=== PATIENT | male | born 1975 | race African-American/Black ===

== ENCOUNTER 2018-11-26 11:43 | Inpatient (IN) | payer OTHER | END 2018-11-28 10:11 | disposition left against medical advice (07) | LOC: YASAS 11:43 → Y3N 14:40 ==

== ENCOUNTER 2019-03-23 14:29 | Inpatient (IN) | payer OTHER ==
[2019-03-23 17:25] VITALS: BMI 18.8
--- NOTE | 2019-03-23 18:26 | HP ---
CIWA Score - Admission Criteria OASAS Guidelines: Admission for Medically Managed Detox: Requires at least one of the followin. CIWA greater than 12 2. Seizures within the past 24 hours 3. Delirium tremens within the past 24 hours 4. Hallucinations within the past 24 hours 5. Acute intervention needed for co occurring medical disorder 6. Acute intervention needed for co occurring psychiatric disorder 7. Severe withdrawal that cannot be handled at a lower level of care (continued vomiting, continued diarrhea, abnormal vital signs) requiring intravenous medication and/or fluids 8. Admission ROS [facility] Chief Complaint: Rehab Services Allergies/Adverse Reactions: Allergies Allergy/AdvReac Type Severity Reaction Status Date / Time No Known Allergies Allergy Verified 03/23/19 17:13 History of Present Illness: 43 y.o. man with an extensive history of crack-cocaine and marijuana dependence as well as alcohol abuse is here seeking rehab services. He was last here for detox on 11/2018 but left AMA after two days. Exam Limitations: No Limitations - Ebola screening Have you traveled outside of the country in the last 21 days: No Have you had contact with anyone from an Ebola affected area: No - Review of Systems Constitutional: No Symptoms Reported EENT: reports: No Symptoms Reported Respiratory: reports: No Symptoms reported Cardiac: reports: No Symptoms Reported GI: reports: No Symptoms Reported : reports: No Symptoms Reported Musculoskeletal: reports: Muscle Pain, Muscle Weakness Integumentary: reports: Bruising, Dryness, Lumps Neuro: reports: Weakness Endocrine: reports: No Symptoms Reported Hematology: reports: No Symptoms Reported Psychiatric: reports: Orientated x3 Other Systems: Reviewed and Negative Patient History - Patient Medical History Hx Anemia: No Hx Asthma: No Hx Chronic Obstructive Pulmonary Disease (COPD): No Hx Cancer: No Hx Cardiac Disorders: No Hx Congestive Heart Failure: No Hx Hypertension: No Hx Hypercholesterolemia: No Hx Pacemaker: No HX Cerebrovascular Accident: No Hx Seizures: No Hx Dementia: No Hx Diabetes: No Hx Gastrointestinal Disorders: No Hx Liver Disease: No Hx Genitourinary Disorders: No Hx Sexually Transmitted Disorders: No Hx Renal Disease (ESRD): No Hx Thyroid Disease: No Hx Human Immunodeficiency Virus (HIV): No (last 2015 negative) Hx Hepatitis C: No Hx Depression: No Hx Suicide Attempt: No Hx Bipolar Disorder: No Hx Schizophrenia: Yes (no med 3 years) - Patient Surgical History Past Surgical History: No - PPD History Previous Implant?: Yes Implanted On Prior [facility] Admission?: Yes Date: 11/28/18 Results: Left AMA PPD to be Administered?: Yes - Reproductive History Patient is a Female of Child Bearing Age (11 -55 yrs old): No - Smoking Cessation Smoking history: Current every day smoker Have you smoked in the past 12 months: Yes Aproximately how many cigarettes per day: 20 Cigars Per Day: 0 Hx Chewing Tobacco Use: No Initiated information on smoking cessation: Yes 'Breaking Loose' booklet given: 03/23/19 - Substance & Tx. History Hx Alcohol Use: Yes Hx Substance Use: Yes Substance Use Type: Alcohol, Cocaine, Marijuana - Substances abused Alcohol Substance route: Oral Frequency: 1-2 times per week Amount used: 1 pint of vodka/12 of 12 ozs of beer Age of first use: 11 Date of last use: 03/22/19 Cocaine Substance route: Smoking Frequency: Daily Amount used: 300$ Age of first use: 15 Date of last use: 03/22/19 Marijuana/Hashish Substance route: Smoking Frequency: Daily Amount used: 3 CLIPS Age of first use: 15 Date of last use: 03/22/19 Family Disease History - Family Disease History Family Disease History: Other: Father (alcohol,), Mother (alcohol, ) Admission Physical Exam BHS - Vital Signs Vital Signs: Vital Signs - 24 hr 03/23/19 17:13 Temperature 97.2 F L Pulse Rate 82 Respiratory 18 Rate Blood Pressure 133/84 - Diagnostic (1) Edema of right lower extremity Current Visit: Yes Status: Chronic (2) Limping Current Visit: Yes Status: Chronic (3) Nicotine dependence Current Visit: Yes Status: Chronic Qualifiers: Nicotine product type: cigarettes Substance use status: uncomplicated Qualified Code(s): F17.210 - Nicotine dependence, cigarettes, uncomplicated (4) Alcohol abuse Current Visit: Yes Status: Chronic (5) Tinea pedis of both feet Current Visit: Yes Status: Acute (6) Right leg weakness Current Visit: Yes Status: Acute (7) Cocaine dependence Current Visit: Yes Status: Chronic Qualifiers: Substance use status: in withdrawal Qualified Code(s): F14.23 - Cocaine dependence with withdrawal (8) Foot fracture, right Current Visit: No Status: Resolved Qualifiers: Encounter type: sequela Fracture type: closed Qualified Code(s): S92.901S - Unspecified fracture of right foot, sequela (9) Cannabis dependence Current Visit: Yes Status: Chronic Cleared for Admission [facility] - Detox or Rehab [facility] Level of Care: Observation Bed Detox Regimen/Protocol: Not Applicable Claeared for Rehab Admission: Yes Breathalyzer - Breathalyzer Breathalyzer: 0 Urine Drug Screen - Test Device Lot number: [id number] Expiration date: 12/05/20 - Control Is test valid?: Yes - Results Drug screen NEGATIVE: No Urine drug screen results: THC-Marijuana, SREEKANTH-Cocaine, MET-Methamphetamine Inpatient Rehab Admission - Rehab Decision to Admit Inpatient rehab admission?: Yes - Initial Determination Are CD services needed?: Yes Free of communicable disease: Yes Not in need of hospitalization: Yes - Rehab Admission Criteria Previous failed treatment: Yes Poor recovery environment: Yes Comorbidities: Yes Lacks judgement: Yes Patient is meeting Inpatient Rehab admission criteria:: Yes
[2019-03-23] MEDS ORDERED: IBUPROFEN 400 MG TABLET (FP) PO PRN (18:35)
[2019-03-23] MEDS ORDERED: hydrOXYzine PAMOATE 50 MG CAPSULE (FP) PO PRN (18:35)
[2019-03-23] MEDS ORDERED: guaiFENesin 200 MG/10 ML 10 ML UNIT-DOSE CUPS PO PRN (18:35)
[2019-03-23] MEDS ORDERED: MENTHOL/PHENOL 1 EACH UD MM PRN (18:35)
[2019-03-23] MEDS ORDERED: P-EPHED 60MG/TRIPROLIDI 2.5MG TABLET PO PRN (18:35)
[2019-03-23] MEDS ORDERED: MAGNESIUM CITRATE 300 ML BOTTLE PO PRN (18:35)
[2019-03-23] MEDS ORDERED: NICOTINE POLACRILEX 2 MG GUM BC PRN (18:35)
[2019-03-23] MEDS ORDERED: MAGNESIUM HYDROX 2400MG/30ML ORAL SUSPENSION 30 ML CUP PO PRN (18:35)
[2019-03-23] MEDS ORDERED: MAG HYDROX/AL HYDROX/SIMETH 30 ML UNIT-DOSE CUP PO PRN (18:35)
[2019-03-23] MEDS ORDERED: ACETAMINOPHEN 325 MG TABLET (FP) PO PRN (18:35)
[2019-03-23] MEDS ORDERED: LOPERAMIDE HCL 2 MG CAPSULE PO PRN (18:35)
[2019-03-23] MEDS: TOLNAFTATE 1% CREAM 15 GM TUBE TP SCH (21:45)
[2019-03-23] MEDS: THIAMINE HCL 100 MG TABLET (FP) PO SCH (21:45)
[2019-03-23] MEDS ORDERED: MELATONIN 5 MG TABLETS PO PRN (22:00)
[2019-03-24] MEDS ORDERED: PT OWN MED DRAWER 7, Y5N ONE (08:52)
--- NOTE | 2019-03-24 09:36 | CONSULT ---
[facility] Psychiatric Consult - Data Date of interview: 03/24/19 Admission source: [facility] Identifying data: Patient is a 43 year old single male, without children, unemployed, homeless, and is not receiving financial assistance. This is one of multiple admissions for patient. Patient admitted to for alcohol, cocaine, and cannabis dependence. Substance Abuse History: - Smoking Cessation. Smoking history: Current every day smoker. Have you smoked in the past 12 months: Yes. Aproximately how many cigarettes per day: 20. Cigars Per Day: 0. Hx Chewing Tobacco Use: No. Initiated information on smoking cessation: Yes. 'Breaking Loose' booklet given : 03/23/19. - Substance & Tx. History. Hx Alcohol Use: Yes. Hx Substance Use : Yes. Substance Use Type: Alcohol, Cocaine, Marijuana. - Substances abused. Alcohol. Substance route: Oral. Frequency: 1-2 times per week. Amount used : 1 pint of vodka/12 of 12 ozs of beer. Age of first use: 11. Date of last use : 03/22/19. Cocaine. Substance route: Smoking. Frequency: Daily. Amount used: 300$. Age of first use: 15. Date of last use: 03/22/19. Marijuana/ Hashish. Substance route: Smoking. Frequency: Daily. Amount used: 3 CLIPS. Age of first use: 15. Date of last use: 03/22/19 Psychiatric History: Patient is a poor historian. Appears to be reluctant to speak about his psychiatric history. Patient states that his first psychiatric contact was in 1996. He reports a history of multiple psychiatric hospitalizations but only recalls being hospitalized at [facility] and taking zyprexa. States that he was diagnosed with schizophrenia. States that his psychiatric admissions were due to his homelessness as he only needed a place to sleep. Patient denies history of suicide attempt. Patient is not under the care of a psychiatric provider. Patient denies auditory/visual hallucinations, suicidal/homicial ideations. No psychosis noted at this current time. Physical/Sexual Abuse/Trauma History: denies. Mental Status Exam - Mental Status Exam Alert and Oriented to: Time, Place, Person Cognitive Function: Good Patient Appearance: Well Groomed Mood: Withdrawn Affect: Mood Congruent Patient Behavior: Guarded, Cooperative Speech Pattern: Appropriate Voice Loudness: Moderately Soft/Quiet Thought Process: Goal Oriented Thought Disorder: Not Present Hallucinations: Denies Suicidal Ideation: Denies Homicidal Ideation: Denies Insight/Judgement: Poor Sleep: Fair Appetite: Fair Muscle strength/Tone: Normal Gait/Station: Other (Walks with a limp.) Psychiatric Findings - Problem List ([place] 1, 2,3) (1) Alcohol dependence Current Visit: Yes Status: Acute (2) Cannabis dependence Current Visit: Yes Status: Chronic (3) Cocaine dependence Current Visit: Yes Status: Chronic Qualifiers: Substance use status: in withdrawal Qualified Code(s): F14.23 - Cocaine dependence with withdrawal (4) Schizophrenia Current Visit: No Status: Chronic Comment: as per self report - Initial Treatment Plan Initial Treatment Plan: Psychoeducation provided. Rehab in progress. Observation.
[2019-03-24] MEDS: PRENATAL VITAMINS W/ FOLIC ACID TABLET (FP) PO SCH (09:49)
[2019-03-24] MEDS: TOLNAFTATE 1% CREAM 15 GM TUBE TP SCH ×2 (09:49→21:54)
[2019-03-24] MEDS: NICOTINE 21 MG/24 HOURS TOPICAL PATCH TD SCH (09:49)
[2019-03-24 12:04] LABS: HEMATOCRIT 34.3 % (35.4-49); HEMOGLOBIN 11.1 GM/dL (11.7-16.9); MCH 24.7 pg (25.7-33.7); MCHC 32.4 g/dl (32.0-35.9); MEAN PLT VOLUME 9.2 fl (7.5-11.1); PLATELET COUNT 231 K/MM3 (134-434); RBC 4.51 M/mm3 (4.00-5.60); RDW 16.1 % (11.9-15.9); WHITE BLOOD COUNT 3.1 K/mm3 (4.0-10.0)
[2019-03-24 12:10] LABS: BILIRUBIN,TOTAL 0.5 mg/dL (0.2-1); BLOOD UREA NITROGEN 17.7 mg/dL (7-18); CALCIUM 8.5 mg/dL (8.5-10.1); CREATININE 0.8 mg/dL (0.55-1.3); TOT PROT 6.2 g/dl (6.4-8.2)
[2019-03-24 12:20] LABS: URINE APPEARANCE CLEAR; URINE BILIRUBIN NEGATIVE (NEGATIVE); URINE COLOR YELLOW; URINE GLUCOSE (UA) NEGATIVE (NEGATIVE); URINE KETONE NEGATIVE (NEGATIVE); URINE LEUK ESTERASE NEGATIVE (NEGATIVE); URINE NITRITE NEGATIVE (NEGATIVE); URINE PROTEIN NEGATIVE (NEGATIVE); URINE UROBILINOGEN 0.2 mg/dL (0.2-1.0)
[2019-03-24] MEDS: THIAMINE HCL 100 MG TABLET (FP) PO SCH (21:54)
[2019-03-25] MEDS: PRENATAL VITAMINS W/ FOLIC ACID TABLET (FP) PO SCH (10:34)
[2019-03-25] MEDS: NICOTINE 21 MG/24 HOURS TOPICAL PATCH TD SCH (10:34)
[2019-03-25] MEDS: TOLNAFTATE 1% CREAM 15 GM TUBE TP SCH ×2 (10:34→21:44)
[2019-03-25] MEDS: THIAMINE HCL 100 MG TABLET (FP) PO SCH (21:44)
[2019-03-26] MEDS: PRENATAL VITAMINS W/ FOLIC ACID TABLET (FP) PO SCH (09:53)
[2019-03-26] MEDS: NICOTINE 21 MG/24 HOURS TOPICAL PATCH TD SCH (09:53)
[2019-03-26] MEDS: TOLNAFTATE 1% CREAM 15 GM TUBE TP SCH ×2 (10:55→22:06)
[2019-03-26] MEDS: THIAMINE HCL 100 MG TABLET (FP) PO SCH (22:06)
[2019-03-27 08:39] VITALS: BP 116/88; PULSE 78; TEMP 98
[2019-03-27] MEDS: PRENATAL VITAMINS W/ FOLIC ACID TABLET (FP) PO SCH (10:03)
[2019-03-27] MEDS: NICOTINE 21 MG/24 HOURS TOPICAL PATCH TD SCH (10:03)
[2019-03-27] MEDS: TOLNAFTATE 1% CREAM 15 GM TUBE TP SCH (10:04)
--- NOTE | 2019-03-27 10:51 | PN ---
[facility] Progress Note Note: Patient stated abruptly to provider " I wanna leave now!!!" When inquired as to his decision to leave, patient stated " Because I said so". Patient appears guarded and irritable, but denies SI/HI. Patient admitted on 03/23/19 for crack/ cocaine dependence and has hx of schizophrenia and multiple admissions to different hospitals. Last admission to [facility] in November 2018 and patient signed out AMA then as well. Patient encouraged to complete rehab but refused. Body Builder Apprentice explained risk factors of relapse and possible overdose with not completing treatment, however patient continued with AMA process. PE alert and oriented x 3 skin warm and dry +perrla, eoms intact bl neck supple,no jvd ext amb with limp, no tremors A/P crack/cocaine dependence Patient signed out ama.
--- NOTE | 2019-03-27 10:54 | DS ---
[facility] Rehab Discharge Summary - [facility] Rehab Discharge Summary Admission Date: 03/23/19 Discharge Date: 03/27/19 - History Present History: Cocaine dependence - Discharge Physical Exam Vital Signs: Vital Signs Temperature 98 F 03/27/19 06:38 Pulse Rate 78 03/27/19 06:38 Respiratory Rate 18 03/27/19 06:38 Blood Pressure 116/88 03/27/19 06:38 O2 Sat by Pulse Oximetry (%) - Medication Discharge Medications: Ambulatory Orders Aripiprazole 10 mg PO DAILY 03/23/19 Clonazepam 0.5 mg PO DAILY 03/23/19 Fluoxetine HCl 10 mg PO DAILY 03/23/19 - Medication-Assisted Treatment (MAT) Medication-Assisted Treatment (MAT): No - Discharge Instructions Diet, activity, other medical instructions: Diet: Activity: Other medical instructions: - Follow-up Referral Minutes to complete discharge: 30 - AMA Did Patient Leave Against Medical Advice: Yes
== END 2019-03-27 11:30 | disposition left against medical advice (07) | DRG 770 ==
LOC: YASAS 14:29 → Y3W 18:38
PROVIDERS: ADMIT Neuromusculoskeletal Medicine & OMM; ATTEND Neuromusculoskeletal Medicine & OMM
PROC: HZ42ZZZ Group Counseling for Substance Abuse Treatment, Cognitive-Behavioral (ICD-10-PCS; principal; 2019-03-23)
DX: F10.20 Alcohol dependence, uncomplicated (principal); F14.20 Cocaine dependence, uncomplicated; F12.20 Cannabis dependence, uncomplicated; F20.9 Schizophrenia, unspecified; R26.89 Other abnormalities of gait and mobility; B35.3 Tinea pedis; R60.0 Localized edema; R29.898 Other symptoms and signs involving the musculoskeletal system
CPT/HCPCS: 36415; 80053; 81003; 85027; 86593

== ENCOUNTER 2019-05-27 14:47 | Inpatient (IN) | payer OTHER ==
[2019-05-27 16:47] VITALS: BMI 23.5
--- NOTE | 2019-05-27 17:27 | HP ---
CIWA Score - Admission Criteria OASAS Guidelines: Admission for Medically Managed Detox: Requires at least one of the followin. CIWA greater than 12 2. Seizures within the past 24 hours 3. Delirium tremens within the past 24 hours 4. Hallucinations within the past 24 hours 5. Acute intervention needed for co occurring medical disorder 6. Acute intervention needed for co occurring psychiatric disorder 7. Severe withdrawal that cannot be handled at a lower level of care (continued vomiting, continued diarrhea, abnormal vital signs) requiring intravenous medication and/or fluids 8. Admitting History and Physical - Smoking History Smoking history: Current every day smoker Have you smoked in the past 12 months: Yes Aproximately how many cigarettes per day: 20 - Alcohol/Substance Use Hx Alcohol Use: Yes Admission ROS [facility] Allergies/Adverse Reactions: Allergies Allergy/AdvReac Type Severity Reaction Status Date / Time No Known Allergies Allergy Verified 05/27/19 16:32 History of Present Illness: 43 y/o M presenting to [facility] for Rehab as he is "tired of using drugs". Pt uses - Ebola screening Have you traveled outside of the country in the last 21 days: No Have you had contact with anyone from an Ebola affected area: No Do you have a fever: No Patient History - Patient Medical History Hx Anemia: No Hx Asthma: No Hx Chronic Obstructive Pulmonary Disease (COPD): No Hx Cancer: No Hx Cardiac Disorders: No Hx Congestive Heart Failure: No Hx Hypertension: No Hx Hypercholesterolemia: No Hx Pacemaker: No HX Cerebrovascular Accident: No Hx Seizures: No Hx Dementia: No Hx Diabetes: No Hx Gastrointestinal Disorders: No Hx Liver Disease: No Hx Genitourinary Disorders: No Hx Sexually Transmitted Disorders: No Hx Renal Disease (ESRD): No Hx Thyroid Disease: No Hx Human Immunodeficiency Virus (HIV): No (last 2015 negative) Hx Hepatitis C: No Hx Depression: No Hx Suicide Attempt: No Hx Bipolar Disorder: No Hx Schizophrenia: No - Patient Surgical History Past Surgical History: No Hx Neurologic Surgery: No Hx Cataract Extraction: No Hx Cardiac Surgery: No Hx Lung Surgery: No Hx Breast Surgery: No Hx Breast Biopsy: No Hx Abdominal Surgery: No Hx Appendectomy: No Hx Cholecystectomy: No Hx Genitourinary Surgery: No Hx Section: No Hx Orthopedic Surgery: No - PPD History Date: 11/28/18 Results: Left AMA - Smoking Cessation Smoking history: Current every day smoker Have you smoked in the past 12 months: Yes Aproximately how many cigarettes per day: 20 Cigars Per Day: 0 Hx Chewing Tobacco Use: No - Substances abused Alcohol Substance route: Oral Frequency: 3-6 times per week Amount used: less than 1 can Age of first use: 11 Date of last use: 05/26/19 Cocaine Substance route: Smoking Frequency: Daily Amount used: 300$ Age of first use: 15 Date of last use: 03/22/19 Marijuana/Hashish Substance route: Smoking Frequency: Daily Amount used: 1 clip Age of first use: 15 Date of last use: 05/26/19 Heroin Substance route: Inhalation Frequency: No use in 30 days Amount used: 1 sniff Age of first use: 43 Date of last use: 05/26/19 Admission Physical Exam BHS - Vital Signs Vital Signs: Vital Signs - 24 hr 05/27/19 16:36 Temperature 98.7 F Pulse Rate 95 H Respiratory 16 Rate Blood Pressure 120/67 Breathalyzer - Breathalyzer Breathalyzer: 0 Urine Drug Screen - Test Device Lot number: [id number] Expiration date: 02/04/21 - Control Is test valid?: Yes - Results Drug screen NEGATIVE: No Urine drug screen results: THC-Marijuana, SREEKANTH-Cocaine
--- NOTE | 2019-05-27 18:06 | HP ---
CIWA Score - Admission Criteria OASAS Guidelines: Admission for Medically Managed Detox: Requires at least one of the followin. CIWA greater than 12 2. Seizures within the past 24 hours 3. Delirium tremens within the past 24 hours 4. Hallucinations within the past 24 hours 5. Acute intervention needed for co occurring medical disorder 6. Acute intervention needed for co occurring psychiatric disorder 7. Severe withdrawal that cannot be handled at a lower level of care (continued vomiting, continued diarrhea, abnormal vital signs) requiring intravenous medication and/or fluids 8. Admitting History and Physical - Smoking History Smoking history: Current every day smoker Have you smoked in the past 12 months: Yes Aproximately how many cigarettes per day: 20 Admission ROS [facility] Chief Complaint: here for rehab from cocaine Allergies/Adverse Reactions: Allergies Allergy/AdvReac Type Severity Reaction Status Date / Time No Known Allergies Allergy Verified 05/27/19 16:32 History of Present Illness: 43 yo with h/o schizophrenia, bipolar, homeless, seen at [facility] and cleared by psych. Pt on ?? and prozac. Pt is here requesting rehab. About 2 weeks ago, says he hurt his R foot and is now with pain of R middle toe. Pt states b/c of pain he has difficulty walking. Pt states he has been walking the streets. Pt now states he drinks occ- what he finds in the garbage Says he uses solomon occ. Says he uses THC occ Says he uses alcohol occ DUR- neg for controlled substances - Ebola screening Have you traveled outside of the country in the last 21 days: No Have you had contact with anyone from an Ebola affected area: No Do you have a fever: No - Review of Systems Musculoskeletal: reports: Other (says he has difficulty walking b/c of pain of both feet, juan R foot- had injury about 2 weeks ago) Integumentary: reports: No Symptoms Reported, Other Neuro: reports: No Symptoms reported Endocrine: reports: No Symptoms Reported Hematology: reports: No Symptoms Reported Psychiatric: reports: Orientated x3, Anxious Patient History - Patient Medical History Hx Anemia: No Hx Asthma: No Hx Chronic Obstructive Pulmonary Disease (COPD): No Hx Cancer: No Hx Cardiac Disorders: No Hx Congestive Heart Failure: No Hx Hypertension: No Hx Hypercholesterolemia: No Hx Pacemaker: No HX Cerebrovascular Accident: No Hx Seizures: No Hx Dementia: No Hx Diabetes: No Hx Gastrointestinal Disorders: No Hx Liver Disease: No Hx Genitourinary Disorders: No Hx Sexually Transmitted Disorders: No Hx Renal Disease (ESRD): No Hx Thyroid Disease: No Hx Human Immunodeficiency Virus (HIV): No (last 2016 negative) Hx Hepatitis C: No Hx Depression: No Hx Suicide Attempt: No Hx Bipolar Disorder: Yes Hx Schizophrenia: Yes - Patient Surgical History Past Surgical History: No Hx Neurologic Surgery: No Hx Cataract Extraction: No Hx Cardiac Surgery: No Hx Lung Surgery: No Hx Breast Surgery: No Hx Breast Biopsy: No Hx Abdominal Surgery: No Hx Appendectomy: No Hx Cholecystectomy: No Hx Genitourinary Surgery: No Hx Section: No Hx Orthopedic Surgery: No - PPD History Date: 11/28/18 Results: Left AMA - Smoking Cessation Smoking history: Current every day smoker Have you smoked in the past 12 months: Yes Aproximately how many cigarettes per day: 20 Cigars Per Day: 0 Hx Chewing Tobacco Use: No Initiated information on smoking cessation: Yes 'Breaking Loose' booklet given: 05/27/19 - Substances abused Alcohol Substance route: Oral Frequency: 3-6 times per week Amount used: less than 1 can Age of first use: 11 Date of last use: 05/26/19 Cocaine Substance route: Smoking Frequency: Daily Amount used: 300$ Age of first use: 15 Date of last use: 03/22/19 Marijuana/Hashish Substance route: Smoking Frequency: Daily Amount used: 1 clip Age of first use: 15 Date of last use: 05/26/19 Heroin Substance route: Inhalation Frequency: No use in 30 days Amount used: 1 sniff Age of first use: 43 Date of last use: 05/26/19 Admission Physical Exam BHS - Vital Signs Vital Signs: Vital Signs - 24 hr 05/27/19 16:36 Temperature 98.7 F Pulse Rate 95 H Respiratory 16 Rate Blood Pressure 120/67 - Physical General Appearance: Yes: Disheveled, Irritable HEENTM: Yes: Within Normal Limits, Hearing grossly Normal, Normal Voice, ZAHRA Respiratory: Yes: Within Normal Limits, Lungs Clear Neck: Yes: Within Normal Limits Cardiology: Yes: Within Normal Limits, Regular Rate Abdominal: Yes: Within Normal Limits, Soft Back: Yes: Within Normal Limits Musculoskeletal: Yes: Other (pt with limp while walking) Extremities: Yes: Other (both legs- thickened skin, R> L with good pulses, no calf tenderness R,) Neurological: Yes: Within Normal Limits, Fully Oriented (alert and oriented X3) , Alert Integumentary: Yes: Other (thickened skin R leg w. venous stasis type changes) Breathalyzer - Breathalyzer Breathalyzer: 0 Urine Drug Screen - Test Device Lot number: [id number] Expiration date: 02/04/21 - Control Is test valid?: Yes - Results Drug screen NEGATIVE: No Urine drug screen results: THC-Marijuana, SOLOMON-Cocaine Inpatient Rehab Admission - Rehab Decision to Admit Inpatient rehab admission?: Yes - Initial Determination Are CD services needed?: Yes Free of communicable disease: Yes Not in need of hospitalization: Yes - Rehab Admission Criteria Previous failed treatment: Yes Poor recovery environment: Yes Comorbidities: Yes Lacks judgement: Yes Patient is meeting Inpatient Rehab admission criteria:: Yes (urine tox pos solomon and tHC)
[2019-05-27] MEDS ORDERED: LOPERAMIDE HCL 2 MG CAPSULE PO PRN (18:56)
[2019-05-27] MEDS ORDERED: ACETAMINOPHEN 325 MG TABLET (FP) PO PRN (18:56)
[2019-05-27] MEDS ORDERED: MAG HYDROX/AL HYDROX/SIMETH 30 ML UNIT-DOSE CUP PO PRN (18:56)
[2019-05-27] MEDS ORDERED: MAGNESIUM HYDROX 2400MG/30ML ORAL SUSPENSION 30 ML CUP PO PRN (18:56)
[2019-05-27] MEDS ORDERED: MENTHOL/PHENOL 1 EACH UD MM PRN (18:56)
[2019-05-27] MEDS ORDERED: guaiFENesin 200 MG/10 ML 10 ML UNIT-DOSE CUPS PO PRN (18:56)
[2019-05-27] MEDS ORDERED: NICOTINE POLACRILEX 2 MG GUM BC PRN (18:56)
[2019-05-27] MEDS ORDERED: IBUPROFEN 400 MG TABLET (FP) PO PRN (18:56)
[2019-05-27] MEDS ORDERED: hydrOXYzine PAMOATE 25 MG CAPSULE (FP) PO PRN (18:56)
[2019-05-27] MEDS ORDERED: MAGNESIUM CITRATE 300 ML BOTTLE PO PRN (18:56)
[2019-05-27] MEDS ORDERED: P-EPHED 60MG/TRIPROLIDI 2.5MG TABLET PO PRN (18:56)
[2019-05-27] MEDS ORDERED: MELATONIN 5 MG TABLETS PO PRN (22:00)
[2019-05-27] MEDS: THIAMINE HCL 100 MG TABLET (FP) PO SCH (23:17)
[2019-05-28 09:50] LABS: PH,URINE 5.5 (5.0-8.0); URINE APPEARANCE CLEAR; URINE BILIRUBIN NEGATIVE (NEGATIVE); URINE COLOR YELLOW; URINE GLUCOSE (UA) NEGATIVE (NEGATIVE); URINE KETONE NEGATIVE (NEGATIVE); URINE LEUK ESTERASE NEGATIVE (NEGATIVE); URINE NITRITE NEGATIVE (NEGATIVE); URINE PROTEIN NEGATIVE (NEGATIVE); URINE UROBILINOGEN 0.2 mg/dL (0.2-1.0)
[2019-05-28] MEDS ORDERED: FLUoxetine HCL 10 MG CAPSULE (FP) PO SCH (10:00)
[2019-05-28] MEDS ORDERED: ARIPiprazole 10 MG TABLET PO SCH (10:00)
[2019-05-28] MEDS: PRENATAL VITAMINS W/ FOLIC ACID TABLET (FP) PO SCH (10:32)
--- NOTE | 2019-05-28 12:19 | CONSULT ---
[facility] Psychiatric Consult - Data Date of interview: 05/28/19 Admission source: [facility] Identifying data: Patient approached for psychiatric consultation. Patient refused. Stated, " i dont need psych meds. I dont see psychiatrist". Psychiatric consultation refused.
[2019-05-28 12:26] LABS: HEMATOCRIT 34.2 % (35.4-49); HEMOGLOBIN 10.8 GM/dL (11.7-16.9); MCH 24.4 pg (25.7-33.7); MCHC 31.7 g/dl (32.0-35.9); MEAN CELL VOLUME 77.1 fl (80-96); MEAN PLT VOLUME 9.5 fl (7.5-11.1); PLATELET COUNT 214 K/MM3 (134-434); RBC 4.44 M/mm3 (4.00-5.60); RDW 19.2 % (11.9-15.9); WHITE BLOOD COUNT 4.1 K/mm3 (4.0-10.0)
[2019-05-28 12:44] LABS: ALBUMIN 2.9 g/dl (3.4-5.0); BILIRUBIN,TOTAL 0.3 mg/dL (0.2-1); BLOOD UREA NITROGEN 17.6 mg/dL (7-18); CALCIUM 8.4 mg/dL (8.5-10.1); CREATININE 0.9 mg/dL (0.55-1.3); POTASSIUM 4.1 mmol/L (3.5-5.1); TOT PROT 5.9 g/dl (6.4-8.2)
[2019-05-28] MEDS: THIAMINE HCL 100 MG TABLET (FP) PO SCH (21:52)
[2019-05-29 07:07] VITALS: BP 147/85; PULSE 85; TEMP 98.1
[2019-05-29] MEDS: PRENATAL VITAMINS W/ FOLIC ACID TABLET (FP) PO SCH (10:38)
--- NOTE | 2019-05-29 13:56 | DS ---
[facility] Rehab Discharge Summary - [facility] Rehab Discharge Summary Admission Date: 05/27/19 Discharge Date: 05/29/19 - History Present History: Cocaine dependence - Discharge Physical Exam Vital Signs: Vital Signs Temperature 98.1 F 05/29/19 07:07 Pulse Rate 85 05/29/19 07:07 Respiratory Rate 16 05/29/19 07:07 Blood Pressure 147/85 05/29/19 07:07 O2 Sat by Pulse Oximetry (%) Pertinent Admission Physical Exam Findings: Notified by BLAIRE Laguerre that patient requested to leave immediately. Patient admitted on 05/27/19 for cocaine dependence. Patient encouraged to complete treatment by counselor, however patient refused. Patient left prior to being evaluated by provider. - Medication Discharge Medications: Ambulatory Orders Aripiprazole 10 mg PO DAILY 03/23/19 Fluoxetine HCl 10 mg PO DAILY 03/23/19 - Medication-Assisted Treatment (MAT) Medication-Assisted Treatment (MAT): No - Discharge Instructions Diet, activity, other medical instructions: Diet Activity: Other medical instructions: - AMA Did Patient Leave Against Medical Advice: Yes
== END 2019-05-29 13:30 | disposition home or self-care (01) | DRG 772 ==
LOC: YASAS 14:47 → Y3W 19:08
PROVIDERS: ADMIT Neuromusculoskeletal Medicine & OMM; ATTEND Neuromusculoskeletal Medicine & OMM
PROC: HZ42ZZZ Group Counseling for Substance Abuse Treatment, Cognitive-Behavioral (ICD-10-PCS; principal; 2019-05-27)
DX: F10.20 Alcohol dependence, uncomplicated (principal); F14.20 Cocaine dependence, uncomplicated; F11.10 Opioid abuse, uncomplicated; F12.20 Cannabis dependence, uncomplicated; F17.210 Nicotine dependence, cigarettes, uncomplicated; F20.9 Schizophrenia, unspecified; F31.9 Bipolar disorder, unspecified; Z59.0 Homelessness
CPT/HCPCS: 36415; 80053; 81003; 85027; 86593